=== PATIENT | female | born 1995 | race Caucasian/White ===

== ENCOUNTER 2019-11-13 12:17 | Emergency (ER) | payer SELFPAY ==
[2019-11-13 12:40] VITALS: BP 148/83
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
[2019-11-13] MEDS ORDERED: LIDOCAINE 1% INJ-PF (10 MG/ML) 30 ML SDV INJ ONE (15:33)
[2019-11-13] MEDS ORDERED: METRONIDAZOLE 500 MG TABLET PO ONE (15:33)
[2019-11-13] MEDS ORDERED: AZITHROMYCIN 250 MG TABLET PO ONE (15:33)
[2019-11-13] MEDS ORDERED: CEFTRIAXONE INJ 250 MG VIAL IM ONE (15:33)
[2019-11-13 15:55] LABS: BACTERIA (WET MOUNT) 3+ BACTERIA SEEN; EPITHELIALS (WET MOUNT) 3+ EPITHELIALS SEEN; RBCS (WET MOUNT) FEW RBCS SEEN; T.VAGINALIS (WET MOUNT) NO TRICHOMONAS SEEN; WBCS (WET MOUNT) 3+ WBCS SEEN; YEAST (WET MOUNT) NO YEAST SEEN
[2019-11-13] MEDS ORDERED: LEVONORGESTREL 1.5 MG TABLET (1 TAB/ER-USE) PO ONE (16:07)
[2019-11-13] MEDS ORDERED: ONDANSETRON 4 MG TAB.RAPDIS PO ONE (16:16)
[2019-11-13 17:19] LABS: CHLAM PCR DETECTED (NOT DETECT)
[2019-11-15 06:37] LABS: HEPATITS B SURFACE ANTIGEN Negative (Negative)
[2019-11-15 11:39] LABS: HEPATITIS C VIRUS ANTIBODY <0.1 s/co ratio (0.0-0.9)
== END 2019-11-13 16:20 | disposition home or self-care (01) ==
LOC: ER 12:17
DX: Z20.2 Contact with and (suspected) exposure to infections with a predominantly sexual mode of transmission (principal); T76.21XA Adult sexual abuse, suspected, initial encounter
CPT/HCPCS: 99284; 96372; 36415; 87210; 81025; 86701; 87491; 87591; 80074; A9270; S0119; J3490; J0696